=== PATIENT | male | born 1945 | race Caucasian/White ===

== ENCOUNTER 2018-07-15 14:00 | Inpatient (IN) | payer MEDICARE, OTHER | END 2018-07-23 19:00 | disposition home or self-care (01) | LOC: ER 14:00 → PCU 3S 07-21 13:33 → ED HOLD 17:32 → PCU 3S 07-16 17:34 → ICU 2S 07-16 19:51 | PROC: 5A1945Z Respiratory Ventilation, 24-96 Consecutive Hours (ICD-10-PCS; principal; ~2018-07-15) | DX: J09.X1 Influenza due to identified novel influenza A virus with pneumonia (principal); J96.01 Acute respiratory failure with hypoxia; I50.23 Acute on chronic systolic (congestive) heart failure; J44.1 Chronic obstructive pulmonary disease with (acute) exacerbation; N18.9 Chronic kidney disease, unspecified ==